=== PATIENT | male | born 1940 | race Caucasian/White ===

== ENCOUNTER 2016-03-19 11:34 | Emergency (ER) | payer OTHER, MEDICARE ==
[2016-03-19] MEDS ORDERED: IOPAMIDOL 300 (61%) 150 ML VIAL IV ONE (11:35)
[2016-03-19] MEDS ORDERED: SODIUM CHLORIDE 0.9% 1,000 ML ONE (12:59)
[2016-03-19 13:00] LABS: ABSOLUTE NEUTROPHIL COUNT 7.6 K/mm3 (1.8-7.7); BASO % 0.3 % (0.2-1.0); EOS # 0.1 (0.0-0.5); EOS % 0.8 % (0.9-2.9); HEMATOCRIT 38.4 % (32.0-52.0); HEMOGLOBIN 12.7 gm/l (14.0-18.0); IMM NEUT% 0.4 % (0-1); LYMPH # 1.4 (1.0-4.8); LYMPH % 14.1 % (15-45); MEAN CELL VOLUME 87.5 fl (80.0-94.0); MEAN CORPUSCULAR HEMOGLOBIN 28.9 pg (27.0-31.0); MEAN CORPUSCULAR HGB CONC 33.1 g/dl (33.0-37.0); MEAN PLATELET VOLUME 9.9 fl (7.4-10.4); MONO % 9.8 % (4-12); NEUT % 74.6 % (43-75); PLATELET COUNT 296 K/mm3 (130-400); RED CELL DISTRIBUTION WIDTH 13.5 % (11.5-14.5)
[2016-03-19 13:33] LABS: ALB/GLOB RATIO 1.3 (>1.0); ALBUMIN 3.9 gm/dL (3.5-5.7); CALCIUM 9.2 mg/dL (8.6-10.3)
--- NOTE | 2016-03-19 14:13 | CT ---
Exam: CT abdomen and pelvis with contrast COMPARISON: None INDICATION: Abdominal pain and bloating. Mass versus SBO. TECHNIQUE: CT examination of the abdomen and pelvis was obtained following the administration of 125 mL Isovue-300 intravenous contrast. FINDINGS: Aside from some mild colonic diverticulosis, the bowel is unremarkable and there is no bowel obstruction, free air or significant free intraperitoneal fluid. Moderate prostatomegaly. There is no significant pelvic lymphadenopathy by size criteria. Gallbladder is moderately distended. The wall of the gallbladder is somewhat ill-defined with equivocal fat stranding in this location. There is no intra or extrahepatic ductal or ductal dilation. The liver, spleen, pancreas and adrenal glands are unremarkable. Parapelvic cysts versus fullness of both collecting systems are noted within the kidneys. There is no donya hydronephrosis or ureteral dilation. Atheromatous but nonaneurysmal abdominal aorta and iliac arteries. Lung bases are clear. No worrisome lytic or blastic osseous lesion is identified. Facet arthropathy is present within the lumbar spine. IMPRESSION: 1. No evidence of mass or small bowel obstruction identified to explain patient's symptoms. 2. Moderate distention of the gallbladder. Consider gallbladder ultrasound if patient is having any right upper quadrant pain. No biliary ductal dilation. 3. Moderate prostatomegaly. 4. Mild colonic diverticulosis without evidence of diverticulitis. Findings were discussed with Dr. Langston at 1407 hours 03/19/2016.
== END 2016-03-19 14:39 | disposition home or self-care (01) ==
LOC: ED 11:34
DX: J18.9 Pneumonia, unspecified organism (principal); R10.9 Unspecified abdominal pain; R11.0 Nausea; E83.42 Hypomagnesemia; I10 Essential (primary) hypertension
CPT/HCPCS: 83605; 83690 ×2; 85025 ×2; 80053 ×2; 83735; 84484; 81001; 71010; 74177; 96375; 99283; 99284 ×3; 96361; 96365; 96367; 93005; J3475; J2405; J7030 ×2; J7050; Q9967; J0696

== ENCOUNTER 2016-03-19 20:40 | Emergency (ER) | payer OTHER, MEDICARE ==
[2016-03-19] MEDS ORDERED: SODIUM CHLORIDE 0.9% 1,000 ML ONE (21:06)
[2016-03-19] MEDS ORDERED: ONDANSETRON 4 MG/2ML 2 ML VIAL ONE (21:06)
[2016-03-19 21:33] LABS: ABSOLUTE NEUTROPHIL COUNT 10.7 K/mm3 (1.8-7.7); BASO % 0.1 % (0.2-1.0); HEMATOCRIT 36.5 % (32.0-52.0); HEMOGLOBIN 12.2 gm/l (14.0-18.0); IMM NEUT% 0.3 % (0-1); LYMPH # 0.5 (1.0-4.8); LYMPH % 4.3 % (15-45); MEAN CELL VOLUME 86.3 fl (80.0-94.0); MEAN CORPUSCULAR HEMOGLOBIN 28.8 pg (27.0-31.0); MEAN CORPUSCULAR HGB CONC 33.4 g/dl (33.0-37.0); MEAN PLATELET VOLUME 10.1 fl (7.4-10.4); MONO # 0.2 (0.0-0.8); MONO % 1.7 % (4-12); NEUT % 93.6 % (43-75); PLATELET COUNT 273 K/mm3 (130-400); RED CELL DISTRIBUTION WIDTH 13.4 % (11.5-14.5)
[2016-03-19 21:45] LABS: ALB/GLOB RATIO 1.2 (>1.0); ALBUMIN 3.7 gm/dL (3.5-5.7); CALCIUM 8.9 mg/dL (8.6-10.3); MAGNESIUM 1.5 mg/dL (1.9-2.7)
[2016-03-19] MEDS ORDERED: MAGNESIUM SULFATE 1 G/100 ML 100 ML IV ONE (21:58)
[2016-03-19 22:15] LABS: SPECIFIC GRAVITY 1.015 (1.001-1.030); URINE BILIRUBIN NEGATIVE (NEGATIVE); URINE BLOOD 1+ (NEGATIVE); URINE GLUCOSE (UA) TRACE (NEGATIVE); URINE LEUKOCYTE ESTERASE NEGATIVE (NEGATIVE); URINE NITRITE NEGATIVE (NEGATIVE); URINE PROTEIN 2+ (NEGATIVE); URINE UROBILINOGEN NORMAL (0-1 mg/dl)
[2016-03-19 22:23] LABS: BAND 6 % (0-10); BASOPHIL 0 % (0-1); EOSINOPHIL 0 % (1-3); LYMPHOCYTE 7 % (15-45); MONOCYTE 1 % (4-12); NEUTROPHILS 86 % (43-75); PLATELET ESTIMATE NORMAL (NORMAL); TOTAL CELLS COUNTED 100
[2016-03-19 22:24] LABS: URINE APPEARANCE SL CLOUDY; URINE COLOR DARK YELLOW
[2016-03-19 22:25] LABS: URINE BACTERIA RARE; URINE EPITHELIAL CELLS RARE /hpf; URINE RBC 0-2 /hpf; URINE WBC 0-2 /hpf
[2016-03-19] MEDS ORDERED: SODIUM CHLORIDE 0.9% 100 ML IV ONE (22:49)
[2016-03-19] MEDS ORDERED: CEFTRIAXONE SODIUM 1 G VIAL ONE (22:49)
[2016-03-19] MEDS ORDERED: CEFTRIAXONE 1 GRAM DUPLEX 50 ML IV ONE (22:52)
--- NOTE | 2016-03-20 07:45 | RAD ---
CHEST-AP BEDSIDE COMPARISON: Chest one view 05/03/2013 HISTORY: 75-year-old male presents a second time today to the emergency department for evaluation of intermittent abdominal pain. White blood cell count elevated 11.5. FINDINGS: Views: Frontal chest. Lungs: Linear opacity in the right upper lobe. Heart and vessels: Normal Trachea and bronchi: Normal Mediastinum and dafne: Normal Costophrenic sulci: Normal Chest wall and bones: Normal Upper abdomen: Normal. IMPRESSION: Interstitial infiltrate pattern in the right upper lobe suspicious for pneumonia.
== END 2016-03-19 23:30 | disposition home or self-care (01) ==
LOC: ED 20:40
DX: J18.9 Pneumonia, unspecified organism (principal); E83.42 Hypomagnesemia; I10 Essential (primary) hypertension
CPT/HCPCS: 83605; 83690; 85025; 80053; 83735; 84484; 81001; 71010; 96375; 99284 ×2; 96361; 96365; 96367; 93005; J3475; J2405; J7030; J7050; J0696